=== PATIENT | male | born 1980 | race Caucasian/White ===

== ENCOUNTER 2016-11-14 14:14 | Outpatient (CLI) | payer OTHER | END 2016-11-14 14:15 | disposition home or self-care (01) | DX: Z72.89 Other problems related to lifestyle (principal) ==

== ENCOUNTER 2016-11-18 14:46 | Outpatient (CLI) | payer OTHER | END 2016-11-18 14:47 | disposition home or self-care (01) | DX: R22.2 Localized swelling, mass and lump, trunk (principal) ==

== ENCOUNTER 2016-11-27 09:15 | Outpatient (CLI) | payer OTHER | END 2016-11-27 09:16 | disposition home or self-care (01) | DX: Z72.51 High risk heterosexual behavior (principal) ==

== ENCOUNTER 2016-12-06 09:12 | Outpatient (CLI) | payer OTHER | END 2016-12-06 09:13 | disposition home or self-care (01) | DX: Z72.89 Other problems related to lifestyle (principal) ==

== ENCOUNTER 2019-03-24 15:36 | Outpatient (CLI) | payer SELFPAY ==
[2019-03-26 12:22] LABS: HIV AG/AB 4TH GEN NON-REACTIVE (NON-REACTIVE)
[2019-03-26 15:19] LABS: HEPATITIS C ANTIBODY NON-REACTIVE (NON-REACTIVE)
[2019-03-27 11:41] LABS: HSV 1 IGG TYPE SPECIFIC AB <0.90 index; HSV 2 IGG TYPE SPECIFIC AB <0.90 index
== END 2019-03-24 15:37 | disposition home or self-care (01) ==
LOC: LAB.S 15:36
PROVIDERS: ATTEND Internal Medicine
DX: Z20.2 Contact with and (suspected) exposure to infections with a predominantly sexual mode of transmission (principal)
CPT/HCPCS: 36415; 81599; 86592; 86695; 86696; 86803; 87389

== ENCOUNTER 2019-09-17 12:49 | Outpatient (CLI) | payer SELFPAY | END 2019-09-17 12:50 | disposition critical access hospital (66) | LOC: EMS 12:49 | PROVIDERS: ATTEND Surgery | DX: R45.89 Other symptoms and signs involving emotional state (principal); F41.9 Anxiety disorder, unspecified | CPT/HCPCS: A0425; A0429 ==

== ENCOUNTER 2019-09-17 13:25 | Emergency (ER) | payer SELFPAY ==
--- NOTE | 2019-09-17 13:53 | ED Physician Documentation ---
History of Present Illness - Stated complaint Stated Complaint: MED REACTION - Chief complaint Chief Complaint: MHE - Additonal information Additional information: This is a 39-year-old male with a history of depression who presents with christine botello for medication reaction to his Wellbutrin. He started Wellbutrin 2 weeks ago in order to help him quit smoking, he is taking 150 mg daily. He states that Yesterday began watching the movie dawit russell which had some very intense scenes of [place], which triggered him into feeling Fairly depressed and scared, and then this morning he developed suicidal ideation and felt that he was not in control of his thoughts. He now feels much better and no longer feels suicidal, but states that he has not established with an outpatient mental health provider. He did not take any suicidal or self harming actions today, denies a history of attempts in the past. He states that he did have suicidal ideation when he was a teenager but none since. Review of Systems Constitutional: denies: Fever Throat: denies: Dental pain / toothache Cardiac: denies: Chest pain / pressure Respiratory: denies: Dyspnea GI: denies: Abdominal Pain : denies: Dysuria PD PAST MEDICAL HISTORY - Past Medical History Psych: Depression - Past Surgical History Past Surgical History: No - Present Medications Home Medications: Ambulatory Orders Medication Instructions Recorded Confirmed No Known Home Medications 05/22/14 05/22/14 - Allergies Allergies/Adverse Reactions: Allergies Allergy/AdvReac Type Severity Reaction Status Date / Time meperidine HCl * AdvReac Unknown Nausea Verified 09/17/19 13:31 [From Demerol] - Social History Does the pt smoke?: No Smoking Status: Never smoker Does the pt drink ETOH?: No Does the pt have substance abuse?: No - Immunizations Immunizations are current?: Yes Immunizations: TDAP current <10years - POLST Patient has POLST: No PD ED PE NORMAL - Vitals Vital signs reviewed: Yes - General General: Alert and oriented X 3, No acute distress - HEENT HEENT: PERRL - Neck Neck: Supple, no meningeal sign - Cardiac Cardiac: RRR, No murmur - Respiratory Respiratory: Clear bilaterally - Abdomen Abdomen: Normal bowel sounds, Soft, Non tender, Non distended - Derm Derm: Warm and dry - Extremities Extremities: No deformity - Neuro Neuro: Alert and oriented X 3 - Psych Psych: Other (Linear goal-directed thought, cooperative with my examination, no signs of delusions or paranoia. Patient's Affect is upbeat, he denies suicidal ideation at this time) Results - Vitals Vitals: Vital Signs - 24 hr 09/17/19 09/17/19 13:29 16:19 Temperature 36.7 C 36.9 C Heart Rate 68 80 Respiratory 16 18 Rate Blood Pressure 166/87 H 148/95 H O2 Saturation 99 96 Oxygen O2 Source Room air PD MEDICAL DECISION MAKING - ED course ED course: Patient presents with a resolved episode of suicidal ideation, he thinks that he is not reacting well to L. Shiv, which she is taking for smoking cessation. He is now no longer feeling suicidal. He appears low risk by his history, he did not have a plan, and no longer feels suicidal, he states that he has family that it is important that he lives for, and he feels safe going home at this time. I consulted social work who discussed safety plan and resources with him. Afterwards patient felt comfortable and was eager to go home. He does want to taper off his Wellbutrin, which I think is reasonable. I discussed the taper - given he has only been on it for 2 weeks he should be okay to cut his dose in half and then stop it altogether. I asked him to talk to his primary care provider to determine if a alternative taper is necessary. I reviewed return precautions including any suicidal ideation or other concerning symptoms and patient agreed and was discharged home Departure - Departure Disposition: 01 Home, Self Care Clinical Impression: Stress reaction Condition: Good Instructions: ED Depression Comments: You were seen today for stress and suicidal ideation that has resolved. This may be related to your Wellbutrin. You may taper off Wellbutrin by cutting your dose down by half this week and then stopping next week. Please contact your primary care provider to discuss whether they want to do an alternative/different taper. If you are having new or worsening symptoms, or recurrence of your suicidal ideation please return to the emergency department. Discharge Date/Time: 09/17/19 16:22
[2019-09-17 16:21] VITALS: BP 148/95
== END 2019-09-17 16:22 | disposition home or self-care (01) ==
LOC: EDUNIT# → ED 13:25
DX: F43.9 Reaction to severe stress, unspecified (principal); R45.851 Suicidal ideations; F32.9 Major depressive disorder, single episode, unspecified; F17.200 Nicotine dependence, unspecified, uncomplicated
CPT/HCPCS: 99283

== ENCOUNTER 2020-02-08 08:00 | Outpatient (CLI) | payer BC | END 2020-02-08 23:59 | disposition home or self-care (01) | LOC: COV 08:00 | PROVIDERS: ATTEND Family Medicine | DX: M79.10 Myalgia, unspecified site (principal); J02.9 Acute pharyngitis, unspecified; Z20.828 Contact with and (suspected) exposure to other viral communicable diseases | CPT/HCPCS: 81599 ==

== ENCOUNTER 2020-04-07 13:29 | Outpatient (CLI) | payer BC ==
--- NOTE | 2020-04-07 15:27 | XRAY Report ---
PROCEDURE: Ankle 3 View RT INDICATIONS: RT ANKLE JOINT PAIN TECHNIQUE: 3 views of the ankle were acquired. COMPARISON: X-ray ankle 05/22/2014 FINDINGS: Bones: ORIF of the distal tibia is present. Hardware is intact. No visualized hardware fracture or p eriprosthetic lucency. Surgical screws near the tibiotalar joint space are not flush with the fixatio n plate. However, no prior baseline exam with surgical hardware is available for comparison. No frac tures or dislocations. Ankle mortise is normally aligned. No suspicious bony lesions. Degenerative changes are noted at the tibiotalar joint space. Anterior talar spur is noted. Cystic focus is noted within the posterior calcaneus this is new compared to 2013. Soft tissues: No tibiotalar joint effusion. Achilles tendon appears normal. IMPRESSION: ORIF as above. New cystic focus within the calcaneus. There is overall indeterminate on the basis of this examination. If pain is present within this region, further evaluation may be obtai alexa. Reviewed by: Cass Gil MD on 04/07/2020 3:26 PM PDT Approved by: Cass Gil MD on 04/07/2020 3:26 PM PDT Station ID: [id number]
== END 2020-04-07 13:30 | disposition home or self-care (01) ==
LOC: DI.S 13:29
PROVIDERS: ATTEND Orthopaedic Surgery
DX: M25.571 Pain in right ankle and joints of right foot (principal)

== ENCOUNTER 2020-11-20 21:43 | Outpatient (CLI) | payer OTHER | END 2020-11-20 21:44 | disposition home or self-care (01) | LOC: COV 21:43 | PROVIDERS: ATTEND Family Medicine | DX: R07.0 Pain in throat (principal); R09.81 Nasal congestion; J34.89 Other specified disorders of nose and nasal sinuses; Z20.822 Contact with and (suspected) exposure to COVID-19 ==

== ENCOUNTER 2021-12-13 08:00 | Outpatient (CLI) | payer OTHER ==
[2021-12-13 21:07] LABS: CHLAMYDIA TRACHOMATIS DNA NEGATIVE (NEGATIVE); NEISSERIA GONORRHOEAE DNA NEGATIVE (NEGATIVE)
[2021-12-14 13:31] LABS: HEPATITIS C ANTIBODY NON-REACTIVE (NON-REACTIVE)
[2021-12-14 14:21] LABS: HIV AG/AB 4TH GEN NON-REACTIVE (NON-REACTIVE)
[2021-12-15 11:51] LABS: HSV 1 IGG TYPE SPECIFIC AB <0.90 index; HSV 2 IGG TYPE SPECIFIC AB <0.90 index
== END 2021-12-13 23:59 ==
LOC: LAB.S 08:00
PROVIDERS: ATTEND Registered Nurse
DX: Z11.3 Encounter for screening for infections with a predominantly sexual mode of transmission (principal)
CPT/HCPCS: 81599; 86592; 86695; 86696; 86803; 87389; 87491; 87591; 87661